=== PATIENT | female | born 1950 | race Caucasian/White ===

== ENCOUNTER → 2017-09-04 | Outpatient (CLI) | payer MEDICARE, OTHER ==
[~2017-09-04] MED LIST: ASCO500 PO; BCOIRO PO; CALC1.25T PO; FISH1000 PO; FLAX PO; LEVSOD100 PO; OLIVE LEAF; RED YEAST RIC1000 GM
== END ==
LOC: PLD 13:50 → LAB SHORT 13:50
DX: D48.5 Neoplasm of uncertain behavior of skin (principal)
CPT/HCPCS: 88305

== ENCOUNTER → 2017-09-14 | Outpatient (CLI) | payer MEDICARE, OTHER | END | disposition home or self-care (01) | LOC: PLD 08:11 → LAB SHORT 08:11 | DX: D22.71 Melanocytic nevi of right lower limb, including hip (principal) | CPT/HCPCS: 88305 ==

== ENCOUNTER → 2019-02-13 | Outpatient (CLI) | payer MEDICARE, OTHER | END | disposition home or self-care (01) | LOC: PLD 09:56 → LAB SHORT 09:56 | DX: D22.5 Melanocytic nevi of trunk (principal) | CPT/HCPCS: 88305 ==

== ENCOUNTER → 2021-06-28 | Outpatient (CLI) | payer MEDICARE, OTHER | END | disposition home or self-care (01) | LOC: LAB 11:29 → LAB SHORT 11:29 | DX: D48.5 Neoplasm of uncertain behavior of skin (principal) | CPT/HCPCS: 88305 ==